=== PATIENT | male | born 1935 | race Caucasian/White ===

== ENCOUNTER 2021-03-21 14:50 | Emergency (ER) | payer MEDICARE, OTHER ==
[~2021-03-21] VITALS: Ht 185.4 cm; Wt 59.9 kg
[~2021-03-21 14:50] MED LIST: ASPI-1071 PO; CALC-1050 PO; CLOT10TR5 PO; FEXO-219 PO; FLO110IN IH; GLUC-193 PO; LISI20TA28 PO; NITR0.4T51 SL; OMEG1CAP13 PO; SIMV-45 PO; TRIA10.8
[2021-03-21] MEDS ORDERED: TETanus/Pertussis (Acell)/Diphther VAC/PF (Tdap-Adult) 0.5ml syringe IMVAC ONE (16:00)
[2021-03-21 19:33] VITALS: BP 164/74
[2021-03-21] MEDS ORDERED: LIDOcaine 1% 30ml preserv. free vial SQ STA (19:47)
[2021-03-21] MEDS ORDERED: CEPH-585 PO (20:06)
== END 2021-03-21 20:48 | disposition home or self-care (01) ==
LOC: ER 14:51
DX: S61.215A Laceration without foreign body of left ring finger without damage to nail, initial encounter (principal); Z79.82 Long term (current) use of aspirin; Z79.2 Long term (current) use of antibiotics; Z79.899 Other long term (current) drug therapy; Z20.3 Contact with and (suspected) exposure to rabies; X58.XXXA Exposure to other specified factors, initial encounter; Y93.89 Activity, other specified; Y92.89 Other specified places as the place of occurrence of the external cause; Y99.8 Other external cause status
CPT/HCPCS: 12001; 12002; 73140; 90471; 90715; 99283